=== PATIENT | female | born 1980 | race Two or more races ===

== ENCOUNTER 2016-11-27 22:36 | Inpatient (IN) | payer OTHER ==
[~2016-11-27] VITALS: Ht 157.5 cm; Wt 74.5 kg
[~2016-11-27 22:36] MED LIST: ASPIR-LOW81 MG PO; BENADRYL25 MG PO; CLEOCIN300 MG PO; NUVARING VAGIN1 EACH VG; PEPCID20 MG PO; PREDNISONE20 MG PO; PRENATAL TABLE1 EAC3 PO
[2016-11-27 22:52] VITALS: BP 119/73
[2016-11-27 23:45] LABS: EOSINOPHIL (%) 1.2 % (0-5); EOSINOPHIL COUNT 0.1 K/uL (0-0.3); HEMATOCRIT 36.6 % (36.0-46.0); IMMATURE GRANULOCYTE (%) 1.2 % (0.0-0.7); IMMATURE GRANULOCYTE COUNT 0.1 K/uL; INSTRUMENT ABS NEUTROPHIL CT 7.4 K/uL; LYMPHOCYTE COUNT 2.5 K/uL (1.0-2.8); MCH 30.4 PG (29.0-34.0); MCHC 33.9 G/DL (30.0-36.0); MCV 89.7 FL (83-99); MEAN PLAT.VOLUME 10.2 uM^3 (9.5-12.4); MONOCYTE (%) 9.1 % (3-12); NEUTROPHIL (%) 65.8 % (45-76); NEUTROPHIL COUNT 7.4 K/uL (1.8-6.4); PLATELET COUNT 179 K/uL (156-360); RBC DIS.WIDTH-CV 12.7 % (11.8-14.6); RBC DIS.WIDTH-SD 41.2 % (39-53); RED BLOOD COUNT 4.08 M/uL (3.80-5.20); WHITE BLOOD COUNT 11.2 K/uL (4.1-10.2)
[2016-11-28] VITALS (30 sets, daily range): BP systolic 104–207; BP diastolic 55–170
[2016-11-28] MEDS ORDERED: MOTRIN800 MG PO (12:38)
[2016-11-29 07:46] VITALS: BP 102/59
[2016-11-29 15:14] VITALS: BP 110/67
[2016-11-29 23:08] VITALS: BP 108/59
[2016-11-30 07:34] VITALS: BP 128/71
== END 2016-11-30 13:49 | disposition home or self-care (01) | DRG 775 ==
LOC: LDRP-OP 22:36 → 2WEST 22:37 → LDRP-OP 01-23 20:27
PROVIDERS: Nurse Practitioner
PROC: 00HU33Z Insertion of Infusion Device into Spinal Canal, Percutaneous Approach (ICD-10-PCS; principal; 2016-11-28)
PROC: 10E0XZZ Delivery of Products of Conception, External Approach (ICD-10-PCS; principal; 2016-11-28)
PROC: 3E033VJ Introduction of Other Hormone into Peripheral Vein, Percutaneous Approach (ICD-10-PCS; principal; 2016-11-28)
PROC: 3E0R3CZ (ICD-10-PCS; principal; 2016-11-28)
DX: O42.913 Preterm premature rupture of membranes, unspecified as to length of time between rupture and onset of labor, third trimester (principal); O99.344 Other mental disorders complicating childbirth; F41.9 Anxiety disorder, unspecified; O99.824 Streptococcus B carrier state complicating childbirth; O69.81X0 Labor and delivery complicated by cord around neck, without compression, not applicable or unspecified; Z3A.36 36 weeks gestation of pregnancy; Z37.0 Single live birth
CPT/HCPCS: 85025; C1755; G0378; J2540; J3010; J7120

== ENCOUNTER → 2016-12-09 | Outpatient (CLI) | payer OTHER ==
[~2016-12-09] MED LIST changes: +MOTRIN800 MG PO
== END | disposition home or self-care (01) ==
LOC: LAC 15:17
DX: O92.79 Other disorders of lactation (principal)
CPT/HCPCS: G0463

== ENCOUNTER 2017-09-23 21:30 | Emergency (ER) | payer OTHER ==
[~2017-09-23] VITALS: Ht 157.5 cm; Wt 62.7 kg
[2017-09-23 23:04] LABS: APPEARANCE SL.HAZY ((CLEAR)); BILIRUBIN NEGATIVE; BLOOD NEGATIVE; COLOR YELLOW ((YELLOW)); GLUCOSE (STRIP) NEGATIVE; KETONES 5; LEUKOCYTES NEGATIVE; NITRITE NEGATIVE; PROTEIN (STRIP) NEGATIVE; SPECIFIC GRAVITY 1.028 (1.000-1.030); UROBILINOGEN 0.2 MG/DL (0.2-1.0)
[2017-09-23 23:08] LABS: BACTERIA NONE SEEN /HPF; EPITHELIAL CELLS 1+ /HPF; MUCUS TRACE /LPF; RED BLOOD CELLS 0-5 /HPF (0-5); UCUL ADDED? NO; WHITE BLOOD CELLS 0-5 /HPF (0-5)
[2017-09-23] MEDS ORDERED: FLEXERIL10 MG PO (23:33)
[2017-09-23] MEDS ORDERED: NORCO 5/3251 TABLET PO (23:33)
[2017-09-23 23:55] VITALS: BP 138/76
== END 2017-09-23 23:55 | disposition home or self-care (01) ==
LOC: EME 21:30
PROVIDERS: Physician Assistant
DX: M54.5 Low back pain (principal); J30.9 Allergic rhinitis, unspecified; F41.9 Anxiety disorder, unspecified
CPT/HCPCS: 72100; 81003; 81025; 99281; 99284; J1885